=== PATIENT | female | born 1995 | race Caucasian/White ===

== ENCOUNTER 2016-11-23 13:52 | Inpatient (IN) | payer MEDICAID ==
[~2016-11-23] VITALS: Ht 165.1 cm; Wt 79.8 kg
[~2016-11-23 13:52] MED LIST: ALBUTEROL-200 PUFFS/ IH; ATIVAN0.5 MG PO; PEPCID 20MG TAB20 MG PO; PREDNISONE 20MG20 MG PO; PRENATAL1 TA2 PO; PROTONIX 40MG T40 MG PO; SYMBICORT1 AE1 IH; TESSALON PERLE100 MG PO; ZITHROMAX Z PA250 MG PO; ZOLOFT 50MG TAB50 MG PO
[2016-11-23 13:57] VITALS: BP 139/62
[2016-11-23] MEDS ORDERED: GABAPENTIN100 MG PO (14:06)
[2016-11-23] MEDS ORDERED: MONTELUKAST SOD10 MG PO (14:07)
[2016-11-23] MEDS ORDERED: QUETIAPINE FUMA50 M1 PO (14:07)
[2016-11-23] MEDS ORDERED: PAROXETINE HCL10 MG PO (14:07)
[2016-11-23] MEDS ORDERED: ALBUTEROL-200 PUFFS/ IH (14:09)
[2016-11-23] MEDS ORDERED: BREO ELLIPTA1 POW IH (14:09)
[2016-11-23] MEDS ORDERED: SPIRIVA HA1 PUFF/INH IH (14:09)
[2016-11-23 14:17] LABS: HEMOGLOBIN 13.5 g/dL (12.2-16.2); LYMPH # 1.6 K/mm3 (0.7-4.5); LYMPH % 22.4 % (10-50.0)
--- NOTE | 2016-11-23 14:32 | Emergency Room Report ---
History of Present Illness Time Seen by MD Garcia Presenting Problem in Triage Pt arrived:Walked Presenting Problem:PT STATES DIFFICULTY BREATHING FOR FOUR STATES. STATES THINKING IT WAS AN ASTHMA FLARE UP BUT ASTHMA MEDICATIONS ARE NOT HELPING. DENIES RECENT FEVER. STATES PRODUCTIVE COUGH WITH YELLOW SPUTUM. DENIES VOMITING, DIARRHEA OR BODY ACHES. STATES SHE IS BUT DOES NOT KNOW HOW FAR ALONG SHE IS. HAS NOT BEEN SEEN BY VISITING PROFESSOR. 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 N Clinical Suspician of Infection? N Mental Status: 1 - Regular (Normal Baseline) Sepsis Risk:Possible Sepsis Risk Have you (or family members/close friends) recently traveled outside the [place]? N If Yes, where/when: Have you had exposure to infectious disease within the past month? N TB? Other? Specify: States longstanding hx of asthma, at times requiring hospitalization; states she was on steroids during prior pregnancies due to asthma flare ups. LMP "about six to eight weeks ago" and has had no care as of yet. Has cough with yellow sputum, but no fever or vomiting. No flu sx. ALLERGIES Coded Allergies: promethazine (From PHENERGAN) (ENID Duque 07/07/16) Home Medications Reported Medications Gabapentin (Gabapentin 100MG) 100 MG PO QHS #30 Quetiapine Fumarate 50 MG PO QHS #30 PAROXETINE HCL (Paroxetine Hcl) 10 MG PO QHS #30 Montelukast Sodium 10 MG PO QHS #30 Tiotropium [place] (Spiriva) 1.25 MCG IH DAILY Albuterol (Albuterol-Hfa Inhaler) 1 PUFF IH TID PRN ASTHMA FLUTICASONE/VILANTEROL (Breo Ellipta 100-25 Mcg INH) 1 POW IH DAILY History Medical History General CAD? No Angina: No [place]: No Hypertension? No Hyperlipidemia? No CHF? No DVT? No PE? No COPD? Yes Asthma? Yes Anemia? No GERD? No Gastric ulcers? No GI Bleed? No Hernia? No Thyroid Problems? No Hypothyroidism? No CVA? No Seizures? Yes Diabetes? No Renal Insuffiency? No End Stage Renal Disease? No UTI? No Stones? No BPH? No GB Disease: Yes Nephritic Syndrome? No Asplenia? No Hepatitis? No Sickle Cell Disease? No Arthritis? No Migraines? No Cataracts? No Glaucoma? No MRSA? No HIV? No TB? No Anxiety? Yes Depression? No Cancer? No More? 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 2 Months Ago Est.Due Date 06/13/17 OB UNKNOWN Social History Smoking Hx Smoker: Former Smoker Tobacco: No Packs/day 1 1/2 - 2 Packs Alcohol Alcohol: No Review of Systems All Other Systems Reviewed and Negative Respiratory see HPI, cough Physical Exam Vital Signs Vital Signs Date Time Temp Pulse Resp B/P Pulse O2 O2 Flow FiO2 Ox Delivery Rate 11/23 1431 94 22 118/46 93 11/23 1413 93 22 95 2 11/23 1357 98.3 99 24 139/62 88 General Appearance normal appearance, WD/WN, mild distress Eye Exam - bilateral eye normal exam, bilateral eye PERRL Neck normal inspection, non-tender, full range of motion Respiratory Status Yes: trachea midline, chest symmetrical, non tender chest, productive cough. No : respiratory distress, tender on palpation, use of accessory muscles, pain on inspiration, pain on expiration, non productive cough. Lung Sounds left: wheezing, expiration. right: wheezing. Cardiovascular normal exam, regular rate/rhythm, no peripheral edema, no gallop, no JVD, no murmur, no rub, JVD Gastrointestinal normal bowel sounds, normal exam, non tender, soft, no organomegaly, no guarding, no rebound Extremities non-tender, normal range of motion, normal inspection, normal capillary refill, no calf tenderness Neurologic alert, normal exam, no motor/sensory deficits Glascow Coma Scale Glascow Coma Scale Response Value EYE response: 4 Spontaneously 4 MOTOR response: 6 OBEYS 6 Total 10 Skin intact, normal color, warm/dry Lymphatic no adenopathy Medical Decision Making LABS/Meds/Orders Pt receiving controlled substance in ED? No Results/Orders Laboratory Tests 11/23/16 1359: Sodium Pending, Potassium Pending, Chloride Pending, Carbon Dioxide Pending, BUN Pending, Creatinine Pending, Estimated Creat Clear Pending, Estimated GFR (MDRD) Pending, Glucose Pending, Calcium Pending, Total Bilirubin Pending, AST Pending, ALT Pending, Alkaline Phosphatase Pending, Total Protein Pending, Albumin Pending, Globulin Pending, Albumin/Globulin Ratio Pending, Beta HCG, Quant Pending, WBC 7.0, RBC 4.49, Hgb 13.5, Hct 38.7, MCV 86.2, RDW 14.1, Plt Count 255, MPV 8.9, Gran % 60.7, Gran # 4.3, Lymphocytes % 22.4, Monocytes % 3.9, Eosinophils % 12.3 H, Basophils % 0.6, Lymphocytes # 1.6, Monocytes # 0.3, Eosinophils # 0.9 H, Basophils # 0.0, PUBS MCHC 34.9, MCH 30.0 Current Medication Orders Sig/Amadeo Start time Last Medication Dose Route Stop Time Status Admin Albuterol 2.5 MG ONCE ONE 11/23 1500 AC INH 11/23 1501 Albuterol 0 .STK-MED ONE 11/23 1447 DC INH Methylprednisolone 0 .STK-MED ONE 11/23 1435 DC Sodium Succinate .ROUTE Methylprednisolone 80 MG ONCE ONE 11/23 1430 DC 11/23 Sodium Succinate IV 11/23 1431 1440 Albuterol/Ipratropium 3 ML ONCE ONE 11/23 1415 DC 11/23 INH 11/23 1416 1412 Sodium Chloride 10 ML PRN PRN 11/23 1415 AC IV 11/24 1411 Albuterol/Ipratropium 0 .STK-MED ONE 11/23 1402 DC INH Orders Procedure Date/time Status Decision to admit 11/23 1452 Active RT REQUEST ALBUTEROL NEB 11/23 1448 Active RT REQUEST DUONEB 11/23 1411 Active IV SALINE LOCK 11/23 1411 Active URINE 11/23 1411 Complete CBC WITH AUTO DIFF 11/23 1411 Complete CHEM 12 PROFILE 11/23 1411 Active BETA-HCG, QUANT 11/23 1411 Active Consult MD Physician Consult Time Called 1446 Reason Pt. Condition, Admission Progress ED Progress Notes Date 11/23/16 Time 1446 Comment Sats 94% on room air but still wheezing. Will repeat nebulizer. I have d/w patient risks vs. benefits of steroids; had steroids for asthma during prior pregnancies; has active wheezing and sats in low 90's so steroids indicated. Departure Departure Time of Disposition [id number] Disposition Still a Patient Clinical Impression Primary Impression: Asthma with status asthmaticus in adult Secondary Impressions: and not yet delivered in first trimester Condition STABLE Referrals JAMIR YOON (Family) ED Critical Care Critical Care Yes Time spent < 30 min Vital system(s) involved: Circulatory Failure (status asthmaticus) I was present at bedside for Coordinating pt's care, Discussing pt condition, For re-examinations (multiple reassessments) at [id number]
--- NOTE | 2016-11-23 14:32 | Emergency Room Report ---
History of Present Illness Time Seen by MD Garcia Presenting Problem in Triage Pt arrived:Walked Presenting Problem:PT STATES DIFFICULTY BREATHING FOR FOUR STATES. STATES THINKING IT WAS AN ASTHMA FLARE UP BUT ASTHMA MEDICATIONS ARE NOT HELPING. DENIES RECENT FEVER. STATES PRODUCTIVE COUGH WITH YELLOW SPUTUM. DENIES VOMITING, DIARRHEA OR BODY ACHES. STATES SHE IS BUT DOES NOT KNOW HOW FAR ALONG SHE IS. 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 N Clinical Suspician of Infection? N Mental Status: 1 - Regular (Normal Baseline) Sepsis Risk:Possible Sepsis Risk Have you (or family members/close friends) recently traveled outside the [place]? N If Yes, where/when: Have you had exposure to infectious disease within the past month? N TB? Other? Specify: States longstanding hx of asthma, at times requiring hospitalization; states she was on steroids during prior pregnancies due to asthma flare ups. LMP "about six to eight weeks ago" and has had no care as of yet. Has cough with yellow sputum, but no fever or vomiting. No flu sx. ALLERGIES Coded Allergies: promethazine (From PHENERGAN) (ENID Duque 07/07/16) Home Medications Reported Medications Gabapentin (Gabapentin 100MG) 100 MG PO QHS #30 Quetiapine Fumarate 50 MG PO QHS #30 PAROXETINE HCL (Paroxetine Hcl) 10 MG PO QHS #30 Montelukast Sodium 10 MG PO QHS #30 Tiotropium [place] (Spiriva) 1.25 MCG IH DAILY Albuterol (Albuterol-Hfa Inhaler) 1 PUFF IH TID PRN ASTHMA FLUTICASONE/VILANTEROL (Breo Ellipta 100-25 Mcg INH) 1 POW IH DAILY History Medical History General CAD? No Angina: No [place]: No Hypertension? No Hyperlipidemia? No CHF? No DVT? No PE? No COPD? Yes Asthma? Yes Anemia? No GERD? No Gastric ulcers? No GI Bleed? No Hernia? No Thyroid Problems? No Hypothyroidism? No CVA? No Seizures? Yes Diabetes? No Renal Insuffiency? No End Stage Renal Disease? No UTI? No Stones? No BPH? No GB Disease: Yes Nephritic Syndrome? No Asplenia? No Hepatitis? No Sickle Cell Disease? No Arthritis? No Migraines? No Cataracts? No Glaucoma? No MRSA? No HIV? No TB? No Anxiety? Yes Depression? No Cancer? No More? 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 2 Months Ago Est.Due Date 06/13/17 OB UNKNOWN Social History Smoking Hx Smoker: Former Smoker Tobacco: No Packs/day 1 1/2 - 2 Packs Alcohol Alcohol: No Review of Systems All Other Systems Reviewed and Negative Respiratory see HPI, cough Physical Exam Vital Signs Vital Signs Date Time Temp Pulse Resp B/P Pulse O2 O2 Flow FiO2 Ox Delivery Rate 11/23 1431 94 22 118/46 93 11/23 1413 93 22 95 2 11/23 1357 98.3 99 24 139/62 88 General Appearance normal appearance, WD/WN, mild distress Eye Exam - bilateral eye normal exam, bilateral eye PERRL Neck normal inspection, non-tender, full range of motion Respiratory Status Yes: trachea midline, chest symmetrical, non tender chest, productive cough. No : respiratory distress, tender on palpation, use of accessory muscles, pain on inspiration, pain on expiration, non productive cough. Lung Sounds left: wheezing, expiration. right: wheezing. Cardiovascular normal exam, regular rate/rhythm, no peripheral edema, no gallop, no JVD, no murmur, no rub, JVD Gastrointestinal normal bowel sounds, normal exam, non tender, soft, no organomegaly, no guarding, no rebound Extremities non-tender, normal range of motion, normal inspection, normal capillary refill, no calf tenderness Neurologic alert, normal exam, no motor/sensory deficits Glascow Coma Scale Glascow Coma Scale Response Value EYE response: 4 Spontaneously 4 MOTOR response: 6 OBEYS 6 Total 10 Skin intact, normal color, warm/dry Lymphatic no adenopathy Medical Decision Making LABS/Meds/Orders Pt receiving controlled substance in ED? No Results/Orders Laboratory Tests 11/23/16 1359: Sodium Pending, Potassium Pending, Chloride Pending, Carbon Dioxide Pending, BUN Pending, Creatinine Pending, Estimated Creat Clear Pending, Estimated GFR (MDRD) Pending, Glucose Pending, Calcium Pending, Total Bilirubin Pending, AST Pending, ALT Pending, Alkaline Phosphatase Pending, Total Protein Pending, Albumin Pending, Globulin Pending, Albumin/Globulin Ratio Pending, Beta HCG, Quant Pending, WBC 7.0, RBC 4.49, Hgb 13.5, Hct 38.7, MCV 86.2, RDW 14.1, Plt Count 255, MPV 8.9, Gran % 60.7, Gran # 4.3, Lymphocytes % 22.4, Monocytes % 3.9, Eosinophils % 12.3 H, Basophils % 0.6, Lymphocytes # 1.6, Monocytes # 0.3, Eosinophils # 0.9 H, Basophils # 0.0, PUBS MCHC 34.9, MCH 30.0 Current Medication Orders Sig/Amadeo Start time Last Medication Dose Route Stop Time Status Admin Albuterol 2.5 MG ONCE ONE 11/23 1500 AC INH 11/23 1501 Albuterol 0 .STK-MED ONE 11/23 1447 DC INH Methylprednisolone 0 .STK-MED ONE 11/23 1435 DC Sodium Succinate .ROUTE Methylprednisolone 80 MG ONCE ONE 11/23 1430 DC 11/23 Sodium Succinate IV 11/23 1431 1440 Albuterol/Ipratropium 3 ML ONCE ONE 11/23 1415 DC 11/23 INH 11/23 1416 1412 Sodium Chloride 10 ML PRN PRN 11/23 1415 AC IV 11/24 1411 Albuterol/Ipratropium 0 .STK-MED ONE 11/23 1402 DC INH Orders Procedure Date/time Status Decision to admit 11/23 1452 Active RT REQUEST ALBUTEROL NEB 11/23 1448 Active RT REQUEST DUONEB 11/23 1411 Active IV SALINE LOCK 11/23 1411 Active URINE 11/23 1411 Complete CBC WITH AUTO DIFF 11/23 1411 Complete CHEM 12 PROFILE 11/23 1411 Active BETA-HCG, QUANT 11/23 1411 Active Consult MD Physician Consult Time Called 1446 Reason Pt. Condition, Admission Progress ED Progress Notes Date 11/23/16 Time 1446 Comment Sats 94% on room air but still wheezing. Will repeat nebulizer. I have d/w patient risks vs. benefits of steroids; had steroids for asthma during prior pregnancies; has active wheezing and sats in low 90's so steroids indicated. Departure Departure Time of Disposition 5963 Disposition Still a Patient Clinical Impression Primary Impression: Asthma with status asthmaticus in adult Secondary Impressions: and not yet delivered in first trimester Condition STABLE Referrals JAMIR YOON (Family) ED Critical Care Critical Care Yes Time spent < 30 min Vital system(s) involved: Circulatory Failure (status asthmaticus) I was present at bedside for Coordinating pt's care, Discussing pt condition, For re-examinations (multiple reassessments) at [phone]
[2016-11-23 15:33] VITALS: BP 131/77
--- NOTE | 2016-11-23 16:26 | HISTORY AND PHYSICAL REPORT ---
History and Physical ([facility]) Date of admission: 11/23/16 Chief complaint: SOA, productive cough History: History of Present Illness: Ms. Davey is a 21yo female with a hx of severe asthma with numerous (as many as 25) hospitalizations in the past 5 years. Her PCP is Lashon Muñoz. She states she has not had a period for a few months. She found out a few days ago she was . This will be her third child. She began getting SOA approx 4 days ago. She used nebulized abluterol and her albuterol inhaler at home. She also has spiriva at home that she used and nothing seemed to help. She lives in [facility] so she presented to the ER for evaluation. She was felt to be having an asthma exacerbation and her oxgen was 88% on RA. She was given two nebulizer treatments as well as solumedrol. Her oxygen came up to 94% on RA. She still feels SOA. She was admitted for further treatment. Of note, she states her PCP had been giving her samples of Breo but she ran out a few weeks ago and her insurance will not cover it. Past Medical History: Medical History: CAD? No Angina: No [place]: No Hypertension? No Hyperlipidemia? No CHF? No DVT? No PE? No COPD? Yes Asthma? Yes Anemia? No GERD? No Gastric ulcers? No GI Bleed? No Hernia? No Thyroid Problems? No Hypothyroidism? No CVA? 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 No Renal Insuffiency? No UTI? No Stones? No BPH? No GB Disease: Yes Nephritic Syndrome? No Asplenia? No Hepatitis? No Sickle Cell Disease? No Arthritis? No Migraines? No Cataracts? No Glaucoma? No MRSA? No HIV? No TB? No Anxiety? Yes Depression? No Cancer? No More? No Additional hx: 1. Bipolar Surgical history: Previous Surgery?Y 1. GALL BLADDER Medications: Reported Medications Gabapentin (Gabapentin 100MG) 100 MG PO QHS #30 Quetiapine Fumarate 50 MG PO QHS #30 PAROXETINE HCL (Paroxetine Hcl) 10 MG PO QHS #30 Montelukast Sodium 10 MG PO QHS #30 Tiotropium [place] (Spiriva) 1.25 MCG IH DAILY Albuterol (Albuterol-Hfa Inhaler) 1 PUFF IH TID PRN ASTHMA FLUTICASONE/VILANTEROL (Breo Ellipta 100-25 Mcg INH) 1 POW IH DAILY Allergies: Coded Allergies: promethazine (From PHENERGAN) (Dunia, ENID 07/07/16) Family History: Family history: Postive for: CAD, DM, HTN, cancer, hyperlipidemia, stroke. Social History: Smoking Hx Tobacco: No Smoker: Former Smoker Type: Cigarettes Packs/day: < 1 Pack Are you exposed to second hand No Alcohol: Alcohol: No Hx of Drug Use: Drug Use? No Review of Systems: Constitutional Positive for: fatigue, lethargy, malaise, weak. ENT No: nasal congestion, sore throat. Cardiovascular Positive for: chest pain, palpitations. No: edema. Respiratory Positive for: dyspnea on exertion, shortness of air, productive cough (sputum), wheezing. GI No: abdominal pain, diarrhea, nausea, vomitting. (female) No: frequency, hematuria. Neurological Positive for: dizziness, headache, weakness. No: syncope. Musculoskeletal Positive for: joint pain (all over). No: myalgias. Psychiatric Positive for: anxious, stress. Physical Exam: Vital signs: 1ST Vital Signs Result Date Time Pulse Ox 88 11/23 1357 B/P 139/62 11/23 1357 Temp 98.3 11/23 1357 Pulse 99 11/23 1357 Resp 24 11/23 1357 O2 Flow Rate 2 11/23 1413 O2 Delivery ROOM AIR 11/23 1533 Exam: General appearance: alert, awake, no acute distress Eyes: EOM's w/normal ROM, PERRLA ENT: nose normal, pharynx normal, tympanic membranes normal, dry mucous membranes Neck: non-tender, full range of motion, supple Cardiovascular: regular rate & rhythm Respiratory: inspiratory and expiratory wheezes bilaterally, no rales ABD: non-distended, normal bowel sounds, no rebound, soft, no tenderness, no guarding Extremities: no peripheral edema Musculoskeletal: equal muscle strength, motor intact, sensation intact Skin: normal color 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 nml as tested, normal mood/affect, oriented, speech clear Lab data: Labs: Laboratory Tests 11/23/16 1359: Sodium 138, Potassium 4.0, Chloride 104, Carbon Dioxide 23, BUN 8, Creatinine 0.8, Estimated Creat Clear 145, Estimated GFR (MDRD) 89, Glucose 86, Calcium 8.7 , Total Bilirubin 0.7, AST 31, ALT 37, Alkaline Phosphatase 75, Total Protein 7.6, Albumin 3.5, Globulin 4.1 H, Albumin/Globulin Ratio 0.9 L, Beta HCG, Quant 58574.4, WBC 7.0, RBC 4.49, Hgb 13.5, Hct 38.7, MCV 86.2, RDW 14.1, Plt Count 255, MPV 8.9, Gran % 60.7, Gran # 4.3, Lymphocytes % 22.4, Monocytes % 3.9 , Eosinophils % 12.3 H, Basophils % 0.6, Lymphocytes # 1.6, Monocytes # 0.3, Eosinophils # 0.9 H, Basophils # 0.0, PUBS MCHC 34.9, MCH 30.0 Diagnosis(es): 1. Asthma with status asthmaticus in adult 2. and not yet delivered in first trimester 3. Anxiety 4. Bipolar 1 disorder Plan: Pt has been admitted and started on nebs, IVF's, and steroids. Will also start on some advair since she has been out of [facility] and it is on formulary. Will start back on some of her home medications that are safe in . Will get a PCR respiratory panel. (Mile Webber) Diagnosis(es): 1. Asthma with status asthmaticus in adult 2. and not yet delivered in first trimester 3. Anxiety 4. Bipolar 1 disorder Plan: Pt seen and examined. SHe is still SOA and wheezing but a bit more comfortable. PCR Respiratory Panel is pending. Concur with above assessment and plan. (Basia Roca MD) at [phone] at [phone]
[2016-11-23 17:22] VITALS: BP 143/77
[2016-11-23 19:47] VITALS: BP 128/66
[2016-11-24 04:24] VITALS: BP 109/56
--- NOTE | 2016-11-24 07:29 | PHARMACY CLINIC NOTE ---
Patient Demographics Patient Demographics Admission date: 11/23/16 Date: 11/24/16 Time: 0728 Allergies Coded Allergies: promethazine (From PHENERGAN) (Dunia, ENID 07/07/16) HEIGHT- FT: 5 IN: 5.00 K.833 VTE General Information Labs: Laboratory Tests 11/23 1359 Hematology Hgb (12.2 - 16.2 g/dL) 13.5 Hct (37.0 - 47.0 %) 38.7 Plt Count (142 - 424 K/mm3) 255 Disclaimer The following section includes nursing documentation that has been pulled in for pharmacy review. Patient's VTE score: 0 Patient's VTE Risk: VERY LOW RISK Clinical trial participant? No VTE prophylaxis NQF [id number] VTE prophylaxis ordered? Yes Type of prophylaxis/treatment: SARAH at 0728
--- NOTE | 2016-11-24 07:29 | PHARMACY CLINIC NOTE ---
Patient Demographics Patient Demographics Admission date: 11/23/16 Date: 11/24/16 Time: 0728 Allergies Coded Allergies: promethazine (From PHENERGAN) (uDnia, ENID 07/07/16) HEIGHT- FT: 5 IN: 5.00 K.833 VTE General Information Labs: Laboratory Tests 11/23 1359 Hematology Hgb (12.2 - 16.2 g/dL) 13.5 Hct (37.0 - 47.0 %) 38.7 Plt Count (142 - 424 K/mm3) 255 Disclaimer The following section includes nursing documentation that has been pulled in for pharmacy review. Patient's VTE score: 0 Patient's VTE Risk: VERY LOW RISK Clinical trial participant? No VTE prophylaxis [id number] VTE prophylaxis ordered? Yes Type of prophylaxis/treatment: SARAH at 0728
[2016-11-24 08:02] VITALS: BP 126/70
--- NOTE | 2016-11-24 08:34 | ACUTE CARE PROGRESS NOTE (QUA) ---
Progress Notes Subjective Date 11/24/16 Time 0832 Note Patient states she is still feeling bad today. She had oxygen in place due to shortness of air. She is still hurting across her chest. Objective Findings Last VS-Temp:97.5 B/P:126/70 Pulse:89 Resp:24 SaO2:98 OXYGEN Last weight lbs:176 oz:0 K.833 Method:Floor Scales Laboratory Tests 11/23/16 1359: Sodium 138, Potassium 4.0, Chloride 104, Carbon Dioxide 23, BUN 8, Creatinine 0.8, Estimated Creat Clear 145, Estimated GFR (MDRD) 89, Glucose 86, Calcium 8.7 , Total Bilirubin 0.7, AST 31, ALT 37, Alkaline Phosphatase 75, Total Protein 7.6, Albumin 3.5, Globulin 4.1 H, Albumin/Globulin Ratio 0.9 L, Beta HCG, Quant 91876.4, WBC 7.0, RBC 4.49, Hgb 13.5, Hct 38.7, MCV 86.2, RDW 14.1, Plt Count 255, MPV 8.9, Gran % 60.7, Gran # 4.3, Lymphocytes % 22.4, Monocytes % 3.9 , Eosinophils % 12.3 H, Basophils % 0.6, Lymphocytes # 1.6, Monocytes # 0.3, Eosinophils # 0.9 H, Basophils # 0.0, PUBS MCHC 34.9, MCH 30.0 Exam General appearance: alert, awake, no acute distress Cardiovascular: regular rate & rhythm Respiratory: inspiratory and expiratory wheezing bilaterally, no rales ABD: non-distended, normal bowel sounds, no rebound, soft, no tenderness, no guarding Extremities: no peripheral edema Assessment/Plan Problem List 1. Asthma with status asthmaticus in adult 2. and not yet delivered in first trimester 3. Anxiety 4. Bipolar 1 disorder Plan: Awaiting PCR respiratory panel. Will continue current care. This inpt stay is expected to cross 2 MNs from start of care Yes (Mile Webber) Subjective Date 11/24/16 Time 0846 Assessment/Plan Problem List 1. Asthma with status asthmaticus in adult 2. and not yet delivered in first trimester 3. Anxiety 4. Bipolar 1 disorder Plan: Pt seen and examined. She appears in no distress. Affect is flat. She still has bilateral wheezes but not as "tight". PCR resp panel has still not been collected. (Basia Roca MD) at 0834 at 0807
[2016-11-24 08:50] LABS: CORONAVIRUS 229E NOT DETECTED (NOT DETECTE); CORONAVIRUS HKU 1 NOT DETECTED (NOT DETECTE); CORONAVIRUS NL63 NOT DETECTED (NOT DETECTE); CORONAVIRUS OC43 NOT DETECTED (NOT DETECTE); RHINOVIRUS/ENTEROVIRUS NOT DETECTED (NOT DETECTE)
[2016-11-24 12:35] LABS: URINE BILIRUBIN - DIPSTICK NEGATIVE (NEG); URINE BLOOD NEGATIVE (NEG)
[2016-11-24 16:06] VITALS: BP 134/72
[2016-11-24 20:05] VITALS: BP 125/76
[2016-11-25 04:01] VITALS: BP 114/68
[2016-11-25 07:48] VITALS: BP 118/68
--- NOTE | 2016-11-25 09:56 | ACUTE CARE PROGRESS NOTE (QUA) ---
Progress Notes Subjective Date 11/25/16 Time 0956 Note States she did not sleep well due to wheezing and coughing. She continues to feel short of breath even at rest. She states she has required home oxygen in the past mainly while sleeping at night. She does not currently have an oxygen concentrator at home Objective Findings Last VS-Temp:97.8 B/P:118/68 Pulse:78 Resp:16 SaO2:99 OXYGEN Last weight lbs:176 oz:0 K.833 Method:Floor Scales Exam General appearance: alert, flat affect ENT: mucous membranes moist Cardiovascular: regular rate & rhythm Respiratory: coarse BS and bilateral wheezes Skin: normal color, warm Assessment/Plan Problem List 1. Asthma with status asthmaticus in adult 2. and not yet delivered in first trimester 3. Anxiety 4. Bipolar 1 disorder Plan: Clinically she looks better with improved sats and less wheezing but subjectively does not feel any better. PCR panel was negative. Will proceed with CXR since she has been slower to respond to treatment than anticipated. Add Ipratropium to nebs. This inpt stay is expected to cross 2 MNs from start of care Yes at 1105
--- NOTE | 2016-11-25 11:23 | RADIOLOGY REPORT PS360 ---
CHEST(2 VIEWS-NOT PORTABLE) COMPARISON: PA and lateral chest 07/23/2016 HISTORY: Status post asthmaticus TECHNIQUE: PA and lateral chest FINDINGS: The lung izaguirre are well expanded. There is no confluent pneumonic infiltrate. The bronchovascular markings are slightly prominent in the right perihilar region and right lower lobe which could be a reflection of mild asthmatic bronchitis. Cardiac size is normal and the vascularity is normal. IMPRESSION: Slightly accentuated markings right lower lobe, see discussion above
[2016-11-25 16:36] VITALS: BP 133/65
[2016-11-25 20:05] VITALS: BP 106/67
[2016-11-26 04:03] VITALS: BP 105/52
[2016-11-26 07:41] LABS: LYMPH # 1.8 K/mm3 (0.7-4.5); LYMPH % 24.5 % (10-50.0)
[2016-11-26 08:02] VITALS: BP 120/59
--- NOTE | 2016-11-26 08:34 | ACUTE CARE PROGRESS NOTE (QUA) ---
Progress Notes Subjective Date 11/26/16 Time 0830 Note Staff reports she slept most of the night but she states she did not sleep well. Persists with cough but she feels it is better. Eating well. Objective Exam General appearance: alert, no acute distress, congested cough Cardiovascular: regular rate & rhythm Respiratory: coarse BS, minimal wheezing Assessment/Plan Problem List 1. Asthma with status asthmaticus in adult 2. and not yet delivered in first trimester 3. Anxiety 4. Bipolar 1 disorder Plan: Continue to attempt to wean O2. Possible discharge home tomorrow. This inpt stay is expected to cross 2 MNs from start of care Yes at 0801
[2016-11-26 08:36] LABS: HEMOGLOBIN 11.9 g/dL (12.2-16.2)
[2016-11-26 16:41] VITALS: BP 99/63
[2016-11-26 19:37] VITALS: BP 99/67
[2016-11-27 04:00] VITALS: BP 98/42
[2016-11-27 07:46] VITALS: BP 94/72
--- NOTE | 2016-11-27 08:10 | ACUTE CARE PROGRESS NOTE (QUA) ---
Progress Notes Subjective Date 11/27/16 Time 0836 Note very negative; states she did not sleep; states she is SOB with satisfactory O2 sats with exertion; eating OK; voiding QS without dysuria; bowels have moved. Objective Findings Vital Signs Date Time Temp Pulse Resp B/P Pulse O2 O2 Flow FiO2 Ox Delivery Rate 11/27 0746 98.3 79 20 94/72 98 OXYGEN 11/27 0632 2 11/27 0542 2 11/27 0542 96 OXYGEN 2 11/27 0516 2 11/27 0400 98.3 67 18 98/42 95 OXYGEN 11/27 0312 94 ROOM AIR 11/27 0309 2 11/27 0132 2 11/26 2320 2 11/26 2105 2 11/26 2050 2 11/26 2005 98.7 88 20 99/67 95 2 11/26 1937 98.7 88 20 99/67 95 OXYGEN 11/26 1859 2 11/26 1847 2 11/26 1700 2 11/26 1641 2 11/26 1641 98.7 74 24 99/63 95 OXYGEN 2 11/26 1500 2 11/26 1449 2 11/26 1300 2 11/26 1229 2 11/26 1100 2 11/26 1027 2 11/26 0959 98.3 81 20 120/59 100 2 11/26 0900 2 Current Medications Albuterol/Ipratropium 0 .STK-MED ONE INH (DC) Albuterol/Ipratropium 0 .STK-MED ONE INH (DC) Miscellaneous 0 .STK-MED ONE XX (DC) Fluticasone Propionate 2 PUFFS Q12H6 IH Prednisone 30 MG BID PO Albuterol/Ipratropium 3 ML QIDRT INH Multivitamins 1 EACH DAILY PO Montelukast Sodium 10 MG QHS PO Quetiapine Fumarate 100 MG QHS PO Fluticasone/Salmeterol 1 PUFFS Q12H6 IN (DC) Acetaminophen 650 MG Q4HP PRN PO Albuterol 2.5 MG Q2HP PRN INH Sodium Chloride 10 ML PRN PRN IV Sodium Chloride 1,000 ML .Q25H IV Sodium Chloride 10 ML PRN PRN IV 11/26 1500 11/26 2300 11/27 0700 Intake Total 360 5836 300 Output Total Balance 360 5836 300 Intake, IV 5556 300 Intake, Oral 360 280 Output, Stool Last VS-Temp:98.3 B/P:94/72 Pulse:79 Resp:20 SaO2:98 OXYGEN Last weight lbs:176 oz:0 K.833 Method:Floor Scales Exam General appearance: alert, no acute distress, sitting cross legged in the bed and appears comfortable; wearing O2 Cardiovascular: regular rate & rhythm Respiratory: normal exam (soft expiratory), soft expiratory wheeze throughout ABD: soft, no tenderness Extremities: no peripheral edema, no calf tenderness Neuro: alert, oriented, speech clear Assessment/Plan Problem List 1. Asthma with status asthmaticus in adult 2. and not yet delivered in first trimester 3. Anxiety 4. Bipolar 1 disorder 5. E-coli UTI Patient condition improved Plan: Ceftin for UTI; check O2 sats on RA This inpt stay is expected to cross 2 MNs from start of care Yes (Dary Banks APRN) Subjective Date 11/27/16 Assessment/Plan Problem List 1. Asthma with status asthmaticus in adult 2. and not yet delivered in first trimester 3. Anxiety 4. Bipolar 1 disorder 5. E-coli UTI Plan: Pt seen and examined. Still with cough. Lungs sound much better but subjectively, patient state she feels SOA without O2. As noted, urine culture returned showing E. coli. Start Ceftin and check RA sats. Probably discharge later today. (Basia Roca MD) at 0837 at 1239
[2016-11-27 08:39] VITALS: BP 94/72
[2016-11-27] MEDS ORDERED: CEFTIN 250MG T250 MG PO (13:52)
[2016-11-27] MEDS ORDERED: MEDROL 4MG. DOSE4 MG PO (13:53)
[2016-11-27] MEDS ORDERED: PRENATAL1 TA1 PO (13:53)
[2016-11-27] MEDS ORDERED: IPRATROPIUM BROM3 M1 IH (13:58)
[2016-11-27 18:25] VITALS: BP 94/72
--- NOTE | 2016-11-30 14:45 | DISCHARGE SUMMARY STANDARD ---
Discharge Summary (FCA2) Date of admission: 11/23/16 Date of discharge: 11/27/16 Problem List: 1. Asthma with status asthmaticus in adult 2. and not yet delivered in first trimester 3. Anxiety 4. Bipolar 1 disorder 5. E-coli UTI History of present illness: Ms. Davey is a 21yo female with a hx of severe asthma with numerous (as many as 25) hospitalizations in the past 5 years. Her PCP is Lashon Muñoz. She stated she had not had a period for a few months. She found out a few days prior to admission she was . This will be her third child. She began getting SOA approx 4 days prior to admission. She used nebulized abluterol and her albuterol inhaler at home. She also had spiriva at home that she used and nothing seemed to help. She lives in [facility] so she presented to the ER for evaluation. She was felt to be having an asthma exacerbation and her oxgen was 88% on RA. She was given two nebulizer treatments as well as solumedrol. Her oxygen came up to 94% on RA. She still felt SOA. She was admitted for further treatment. Of note, she stated her PCP had been giving her samples of Breo but she ran out a few weeks prior to admission and her insurance would not cover it. Exam on admission: General appearance: alert, awake, no acute distress Eyes: EOM's w/normal ROM, PERRLA ENT: nose normal, pharynx normal, tympanic membranes normal, dry mucous membranes Neck: non-tender, full range of motion, supple Cardiovascular: regular rate & rhythm Respiratory: inspiratory and expiratory wheezes bilaterally, no rales ABD: non-distended, normal bowel sounds, no rebound, soft, no tenderness, no guarding Extremities: no peripheral edema Musculoskeletal: equal muscle strength, motor intact, sensation intact Skin: normal color Neuro: meter changes records clerk II-XII nml as tested, normal mood/affect, oriented, speech clear Hospital Course: Patient was admitted and started on nebs, IV fluids, and steroids. She was also started on Advair since she had been out of her Breo. She was started back on home medications that were safe during . A PCR respiratory panel was ordered and was negative. She improved very slowly, therefore a chest x-ray was ordered. It showed slightly accentuated markings in the RIGHT lower lobe. Her oxygen was able to be weaned. She was found to have an E. coli UTI. She was stable to be discharged home on 11/27/16 on Ceftin, steroids, duo nebs, and a vitamin. She will need to follow-up with her primary care physician. Discharge medications: Stop taking the following medications: Tiotropium [place] (Spiriva) 18 MCG CAP.W.DEV INHALATION DAILY FLUTICASONE/VILANTEROL (Breo Ellipta 100-25 Mcg INH) 1 EACH BLST.W.DEV INHALATION DAILY Continue taking these medications: Gabapentin (Gabapentin 100MG) 100 MG CAPSULE 100 MILLIGRAM ORAL AT BEDTIME NIGHTLY Qty = 30 Quetiapine Fumarate (Quetiapine Fumarate) 50 MG TABLET 50 MILLIGRAM ORAL AT BEDTIME NIGHTLY Qty = 30 PAROXETINE HCL (Paroxetine Hcl) 10 MG TABLET 10 MILLIGRAM ORAL AT BEDTIME NIGHTLY Qty = 30 Montelukast Sodium (Montelukast Sodium) 10 MG TABLET 10 MILLIGRAM ORAL AT BEDTIME NIGHTLY Qty = 30 Albuterol (Albuterol-Hfa Inhaler) 8 GM HFA.AER.AD 1 PUFF INHALATION THREE TIMES A DAY as needed for ASTHMA Start taking the following new medications: CEFUROXIME AXETIL (CEFTIN 250MG TAB) 250 MG TABLET 500 MILLIGRAM ORAL TWICE A DAY Qty = 14 No Refills VIT#96/FERROUS FUM/FA ( Tablet) 1 EACH TABLET 1 EACH ORAL DAILY Qty = 30 No Refills Methylprednisolone (Medrol Dose Mouna) 21 TAB MOUNA 4 MILLIGRAM ORAL UD Qty = 1 No Refills Instructions: TAKE DIRECTED ON PACKAGING ALBUTEROL-IPRATROPIUM (Iprat-Albut 0.5-3(2.5) MG/3 Ml) 3 ML AMPUL.NEB 3 MILLILITER INHALATION FOUR TIMES A DAY Qty = 120 No Refills Disposition: F/u with: OTHER Follow up: 7 DAYS Activity: Cont Current activity Diet: Regular Discharge to: HOME Agency needed? N at [id number]
[2016-12-28] MEDS ORDERED: AMOXICILLIN500 M2 PO (17:50)
[2017-01-03] MEDS ORDERED: MECLIZINE 25MG25 MG PO (16:23)
== END 2016-11-27 18:00 | disposition home or self-care (01) | DRG 202 ==
LOC: ER 13:52 → 2ND 14:59 → ER 14:59 → 2ND 15:11
PROVIDERS: Emergency Medicine; Family Medicine
DX: J45.902 Unspecified asthma with status asthmaticus (principal); O23.41 Unspecified infection of urinary tract in pregnancy, first trimester; R56.9 Unspecified convulsions; B96.20 Unspecified Escherichia coli [E. coli] as the cause of diseases classified elsewhere; F31.9 Bipolar disorder, unspecified; O26.891 Other specified pregnancy related conditions, first trimester
CPT/HCPCS: Q2038

== ENCOUNTER 2017-07-10 05:24 | Inpatient (IN) | payer MEDICAID ==
[~2017-07-10] VITALS: Ht 162.6 cm; Wt 87.1 kg
[~2017-07-10 05:24] MED LIST changes: +AMOXICILLIN500 M2 PO; +BREO ELLIPTA1 POW IH; +CEFTIN 250MG T250 MG PO; +FERROUS SULFAT325 M2 PO; +FLOVENT 11110 MCG/PU IH; +GABAPENTIN100 MG PO; +IPRATROPIUM BROM3 M1 IH; +MECLIZINE 25MG25 MG PO; +MEDROL 4MG. DOSE4 MG PO; +MIRALAX17 GM/PACK PO; +MONTELUKAST SOD10 MG PO; +PAROXETINE HCL10 MG PO; +PAXIL10 MG PO; +PRENATAL1 TA1 PO; +QUETIAPINE FUMA50 M1 PO; +SPIRIVA HA1 PUFF/INH IH; +WELLBUTRIN XL150 MG PO; +ZANTAC 150150 MG PO
[2017-07-10 05:58] VITALS: BP 111/67
[2017-07-10 06:04] LABS: HEMOGLOBIN 11.8 g/dL (12.2-16.2); LYMPH # 1.9 K/mm3 (0.7-4.5); LYMPH % 25.8 % (10-50.0)
[2017-07-10 06:19] LABS: ABO BLOOD TYPE A; RH BLOOD TYPE POSITIVE
[2017-07-10 07:30] VITALS: BP 117/73
--- NOTE | 2017-07-10 07:55 | LABOR NOTE ---
Laboring Subjective Subjective Date 07/10/17 Time 0754 Subjective: Pt is having regular contractions Laboring Objective Objective NST: Reactive Contractions: q 2-3 minutes Cervical dilation: 4 Effacement: 75% Station: -1 Membranes are: Artificially ruptured (with clear fluid) Fetus monitoring? Yes Type: External Laboring Assessment Assessment Progressing? Yes Cephalopelvic disproportion? No Problem List: 1. Laboring Plan Plan Anethesia for epidural? Yes Continue to labor down? Yes Plan for ? No Continue to monitor? Yes Start pushing? No at 0755
[2017-07-10 10:10] LABS: URINE BLOOD 3+ (NEG)
--- NOTE | 2017-07-10 10:18 | LABOR NOTE ---
Laboring Subjective Subjective Date 07/10/17 Time 1016 Subjective: Pt is having regular contractions Laboring Objective Objective NST: Reactive Contractions: q 2-3 minutes Cervical dilation: 5 Effacement: 75% Station: -1 Membranes are: Artificially ruptured (with clear fluid) Fetus monitoring? Yes Type: Internal Comment: iupc inserted Laboring Assessment Assessment Progressing? Yes Cephalopelvic disproportion? No Problem List: 1. Laboring Plan Plan Anethesia for epidural? Yes Continue to labor down? Yes Plan for ? No Continue to monitor? Yes Start pushing? No at 1017
[2017-07-10 10:32] LABS: URINE BILIRUBIN - DIPSTICK NEGATIVE (NEG)
--- NOTE | 2017-07-10 12:03 | Delivery Note ---
Delivery note Delivery date: 07/10/17 Delivery time: 1152 Anesthesia: Epidural, Mitch Evans Was labor medically induced? No Gestational age in weeks: 39 weeks Delivery prior to 39 weeks? No Sex: male score at one minute: 8 at 5 minutes: 9 Type of suction: bulb AF: Clear fluid LAC or MLE: LAC (none) Delivery procedure: Normal Delivery Delivery of placenta: spontaneous Clinical note She is a 22-year-old 4 para 3 who was 39 weeks gestational age. She was feeling pressure and occasional contractions and as result of that was offered augmentation of labor. She started on IV oxytocin and had her membranes ruptured. She progressed under labor epidural to full dilation and delivered spontaneously a liveborn male child at 11:52 AM on the morning of July 10, 2017. On delivery the head these anterior shoulder delivered rapidly followed by the rest of the infant's body atraumatically. The cord was allowed to pulsate for approximately 1 minute and then we doubly clamped cord. The baby was then placed on the mother's abdomen for further care. The nurses assigned Apgars of 8 at 1 minute and 9 at 5 minutes. We then obtained cord blood as well as cord pH. It was noted that the cord was fairly long and there was a true knot in the cord. The pH was 7.26. She received IV oxytocin and using gentle traction on the cord and countertraction on the fundus I was able to easily deliver the placenta intact. It had a normal three-vessel cord. There were no perineal or vaginal lacerations. She has a positive blood, she is rubella immune and was group B streptococcus negative. She plans to breast-feed. Her transportation dispatch manager is Dr. Roca. Estimate a blood loss was approximate 400 mL. at 1201
[2017-07-10 20:08] VITALS: BP 117/62
[2017-07-11 07:07] LABS: HEMOGLOBIN 11.4 g/dL (12.2-16.2)
[2017-07-11 08:16] VITALS: BP 123/75
--- NOTE | 2017-07-11 09:45 | ACUTE CARE PROGRESS NOTE (QUA) ---
Progress Notes Subjective Date 07/11/17 Time 0943 Note She is doing very well this morning. She is eating and drinking and ambulating. She is breast feeding. Her lochia is normal. Patient/family reports: feeling better, no complaints Objective Findings Last VS-Temp:97.9 B/P:123/75 Pulse:75 Resp:18 SaO2: Last weight lbs:192 oz:0 K.091 Method:Stated Laboratory Tests 07/11/17 0630: Hgb 11.4 L, Hct 33.4 L 07/10/17 1155: Cord Blood pH 7.26 L 07/10/17 0950: Urine Color DK YELLOW, Urine Appearance SL CLOUDY, Urine pH 8.5, Ur Specific [place] 1.010, Urine Protein 2+ H, Urine Ketones NEGATIVE, Urine Blood 3+ H, Urine Nitrate NEGATIVE, Urine Bilirubin NEGATIVE, Urine Urobilinogen 1.0, Ur Leukocyte Esterase NEGATIVE, Urine RBC 50-100, Urine WBC 5-10, Ur Squamous Epith Cells 5-10, Urine Bacteria 4+, Urine Mucus 2+, Urine Glucose NEGATIVE Microbiology 07/10 950 URINE CATH: Urine Culture - RES 07/10 950 URINE CC: Urine Culture - CAN Cancelled: @NEEDS TO BE A CATH Exam General appearance: normal appearance, alert, awake, no acute distress Assessment/Plan Problem List 1. 2. Normal delivery Patient condition Improving, Stable Plan: continue current care This inpt stay is expected to cross 2 MNs from start of care Yes Comments: She is doing very well and we'll plan to send her home tomorrow. at 0945
[2017-07-11 19:45] VITALS: BP 125/80
[2017-07-12] MEDS ORDERED: MOTRIN 400MG.400 MG PO (08:01)
[2017-07-12 08:50] VITALS: BP 113/70
--- NOTE | 2017-07-12 10:38 | ACUTE CARE PROGRESS NOTE (QUA) ---
Progress Notes Subjective Date 07/12/17 Time 1037 Note She is doing very well this morning. She is eating and drinking and ambulating. She is breast-feeding. Her lochia is normal. Patient/family reports: feeling better, no complaints Objective Findings Last VS-Temp:97.9 B/P:113/70 Pulse:85 Resp:18 SaO2: Last weight lbs:192 oz:0 K.091 Method:Stated Exam General appearance: normal appearance, alert, awake, no acute distress Reviewed: vital signs, lab results Assessment/Plan Problem List 1. 2. Normal delivery Patient condition Improving, Stable Plan: continue current care, initiate discharge plan This inpt stay is expected to cross 2 MNs from start of care Yes Comments: She is doing very well this morning. We'll plan to send her home today. at 1038
--- NOTE | 2017-07-12 10:40 | Discharge Summary ---
Discharge Summary Admission date: 07/10/17 Discharge date: 07/12/17 Discharge diagnoses: Term , has vaginal delivery Clinical note: She is a 22-year-old 4 now para 4 who was 39 weeks gestational age. She was having pressure and occasional contractions so we elected to augment her labor. Course in hospital: She was started on IV oxytocin and had her membranes ruptured. She progressed under labor epidural to full dilation and delivered spontaneously a liveborn male child at 11:52 AM on the morning of July 10, 2017. Baby had Apgars of 8 at 1 minute and 9 at 5 minutes. He had a pH of 7.26. She has done well and has remained afebrile throughout her hospitalization. She is eating and drinking and ambulating. She is breast- feeding. She is taking [id number] analgesics for pain. She has a positive blood, she is rubella immune and was group B streptococcus negative. Laboratory Tests 07/10/17 0540: WBC 7.5, RBC 3.90, MCV 85.5, RDW 13.1, Plt Count 155, MPV 9.9, Gran % 64.6, Gran # 4.9, Lymphocytes % 25.8, Monocytes % 4.4, Eosinophils % 5.0, Basophils % 0.2, Lymphocytes # 1.9, Monocytes # 0.3, Eosinophils # 0.4, Basophils # 0.0, PUBS MCHC 35.3, Antibody Screen NEGATIVE, Miscellaneous Test POSITIVE 07/10/17 0540: MCH 30.2 07/10/17 0950: Urine Color DK YELLOW, Urine Appearance SL CLOUDY, Urine pH 8.5, Ur Specific [place] 1.010, Urine Protein 2+, Urine Ketones NEGATIVE, Urine Blood 3+, Urine Nitrate NEGATIVE, Urine Bilirubin NEGATIVE, Urine Urobilinogen 1.0, Ur Leukocyte Esterase NEGATIVE, Urine RBC 50-100, Urine WBC 5-10, Ur Squamous Epith Cells 5- 10, Urine Bacteria 4+, Urine Mucus 2+, Urine Glucose NEGATIVE 07/10/17 1155: Cord Blood pH 7.26 07/11/17 0630: Hgb 11.4, Hct 33.4 Plans for ongoing care: She is discharged home to follow-up with me in approximately 2 weeks' time. Discharge medications She will continue with her vitamins and iron. She was given a prescription for Motrin 400 mg number 40 tablets. DC/follow-up instructions She was given the usual instructions with respect to limiting her activity, driving and sexual activity. Condition at discharge Stable and improved at 1040
== END 2017-07-12 15:07 | disposition home or self-care (01) | DRG 775 ==
LOC: OB 05:24
PROVIDERS: Nurse Practitioner Obstetrics & Gynecology
PROC: 10E0XZZ Delivery of Products of Conception, External Approach (ICD-10-PCS; principal; 2017-07-10)
DX: O69.2XX0 Labor and delivery complicated by other cord entanglement, with compression, not applicable or unspecified (principal); Z37.0 Single live birth; Z3A.39 39 weeks gestation of pregnancy
CPT/HCPCS: C1758

== ENCOUNTER → 2017-09-03 | Outpatient (CLI) | payer MEDICAID ==
[~2017-09-03] MED LIST changes: +MOTRIN 400MG.400 MG PO
[2017-09-03 11:03] LABS: LYMPH # 2.1 K/mm3 (0.7-4.5); LYMPH % 36.2 % (10-50.0)
[2017-09-03 11:16] LABS: HEMOGLOBIN 12.5 g/dL (12.2-16.2)
[2017-09-03 12:17] LABS: BUN 19 mg/dL (7-18)
[2017-09-03 12:29] LABS: GFR (ESTIMATED) 61 ML/MIN (59-)
== END ==
LOC: LAB 10:41
PROVIDERS: Nurse Practitioner Obstetrics & Gynecology
DX: Z30.09 Encounter for other general counseling and advice on contraception (principal); Z01.818 Encounter for other preprocedural examination

== ENCOUNTER 2017-09-05 05:52 | Day surgery (SDC) | payer MEDICAID ==
[~2017-09-05] VITALS: Ht 162.6 cm; Wt 81.6 kg
--- NOTE | 2017-09-05 08:15 | Anesthesia Record ---
Anesthesia Record Part I Total IV fluids: 350 EBL (ml): 10 Urine Output: 200 B/P: 113/76 % SaO2: 94 Pulse: 66 Resps: 16 Temp: 97.0 Patient is: Drowsy, Stable Stable to PACU at: 0814 at 0815
--- NOTE | 2017-09-05 08:15 | Operative Note ---
Procedure/Operative Record Procedure Date of procedure: 09/05/17 Pre-Op Dx: Desire for sterilization Post-Op Dx: Desire for sterilization Procedure performed: Laparoscopic bilateral salpingectomy Surgeon: Dr. Chas Alvarez Licensed Chemical Spray Technician(s): None Anesthesia: Merrick De Oliveira EBL (ml): 25 Clinical note: She is a 22-year-old 4 para 4 who is desirous sterilization. The risks and benefits as well as the irreversibility of bilateral salpingectomy were discussed with the patient prior to surgery. Operative findings: She had a normal-appearing pelvis. The upper abdomen appeared normal. The tubes were followed to their fimbriated ends appeared normal. The ovaries appeared normal. The appendix was seen and appeared normal as well. The deep pelvis was normal in appearance. There is no evidence of endometriosis. Operative note: She was taken to the operating room where general anesthesia was found be adequate. She was prepped and draped in normal sterile fashion in the semi- lithotomy position. A weighted speculum was placed in the vagina and the anterior lip of the cervix was grasped with a tenaculum. Holman dilators used to dilate the cervix to approximately 4 mm. I then inserted a Cat uterine manipulator into the uterine cavity. The balloon was insufflated. I changed gloves and injected 10 mL of 0.5 percent ropivacaine around the M like us. I made a small incision within the umbilicus and inserted a Veress needle into the abdominal cavity. The abdominal cavity was then insufflated with carbon oxide gas to a pressure of 20 mmHg. I then inserted a 5 mm trocar under direct vision. I injected through and through the pubic hairline, made a small incision here and inserted an 8 mm trocar under direct vision. I then identified the inferior epigastric arteries on the LEFT side, went lateral to these and injected through and through. I made a small incision and then inserted a 5 mm trocar under direct vision. I then inspected the pelvis and upper abdomen. The findings were as previous see dictated. I then grasped the RIGHT tube close to the cornua and using cautery cauterized the tube for approximately 1 cm from the cornua along the tube. I then cut through the tube. I then grasped the distal end of the tube and using Harmonic scalpel cutting along the meso salpinx. I cut along the mesosalpinx until it joined up with where it cut the tube from the uterus. The tube was then removed through the 8 mm trocar site. This was similarly performed on the patient's LEFT side. After assuring hemostasis we then let some of the gas out of the abdomen. Once again hemostasis was assured. We injected 30 mL of 0.5 percent ropivacaine into the pelvis. The secondary trochars were then removed under direct vision. The gas was let out of the abdomen. The primary trocar was then removed. The 8 mm trocar site was closed deeply with 2-0 Vicryl suture. The skin was closed with subcuticular 4-0 Monocryl suture. The 5 mm trocar sites were closed with subcuticular 4-0 Monocryl suture. Sterile dressings were applied. The patient tolerated the procedure well and was taken to the recovery room in excellent condition. All sponge instrument and needle counts were correct. Estimated blood loss was less than 25 mL. Conplications: None Specimens: Bilateral fallopian tubes at 0814
--- NOTE | 2017-09-05 08:16 | Anesthesia Record ---
Anesthesia Record Part II Discharge time: 843 Destination: Same day surgery PACU nurse assessment review? Yes Patient is: Stable Anesthesia complications? No at 0815
[2017-09-05 09:55] VITALS: BP 110/68
== END 2017-09-05 09:25 | disposition home or self-care (01) ==
LOC: SDC 05:52
PROVIDERS: Nurse Practitioner Obstetrics & Gynecology
PROC: 0UT74ZZ Resection of Bilateral Fallopian Tubes, Percutaneous Endoscopic Approach (ICD-10-PCS; principal; 2017-09-05 07:30)
DX: Z30.2 Encounter for sterilization (principal)